=== PATIENT | female | born 1995 | race Caucasian/White ===

== ENCOUNTER 2016-08-28 17:12 | Emergency (ER) | payer OTHER, BC ==
[~2016-08-28] VITALS: Ht 160 cm; Wt 49.9 kg
[2016-08-28 17:13] VITALS: BP 123/84
[2016-08-28] MEDS ORDERED: DERMABOND TOPICAL SKIN ADHESIVE TOP ONE (18:00)
== END 2016-08-28 18:11 | disposition home or self-care (01) ==
LOC: M ED 18:08
DX: S61.012A Laceration without foreign body of left thumb without damage to nail, initial encounter (principal); W29.0XXA Contact with powered kitchen appliance, initial encounter; Y92.120 Kitchen in nursing home as the place of occurrence of the external cause; Y93.G1 Activity, food preparation and clean up; Y99.0 Civilian activity done for income or pay

== ENCOUNTER → 2016-11-07 | Outpatient (REF) | payer BC | LOC: M LAB REF 13:01 | PROVIDERS: ATTEND Physician Assistant | DX: J02.9 Acute pharyngitis, unspecified (principal) ==

== ENCOUNTER → 2017-02-06 | Outpatient (CLI) | payer BC ==
[2017-02-06 14:17] LABS: BASO % 0.4 % (0.0-1.0); EOS # 0.1 10^3/uL (0.0-0.50); EOS % 1.3 % (0.0-3.0); IMMATURE GRANULOCYTE % 0.2 % (0-0); LYMPH # 2.3 10^3/uL (1.5-6.5); LYMPH % 21.9 % (24.0-44.0); MEAN CORPUSCULAR HEMOGLOBIN 30.7 pg (27.0-33.0); MEAN CORPUSCULAR HGB CONC 34.8 g/dl (32.0-36.5); MEAN CORPUSCULAR VOLUME 88.3 fl (80.0-96.0); MONO % 9.3 % (0.0-5.0); NEUTROPHILS # 7.2 10^3/uL (1.8-7.7); NEUTROPHILS % 66.9 % (36.0-66.0); PLATELET COUNT, AUTOMATED 189 10^3/uL (150-450); RED CELL DISTRIBUTION WIDTH 12.1 % (11.5-14.5); WHITE BLOOD COUNT 10.7 10^3/uL (4.0-10.0)
[2017-02-06 15:39] LABS: HBsAg Prenatal NEGATIVE (NEGATIVE)
== END ==
LOC: M LAB 13:44
PROVIDERS: ATTEND Advanced Practice Midwife
DX: Z34.81 Encounter for supervision of other normal pregnancy, first trimester (principal); Z3A.01 Less than 8 weeks gestation of pregnancy

== ENCOUNTER 2017-03-10 03:31 | Emergency (ER) | payer BC ==
[~2017-03-10] VITALS: Ht 162.6 cm; Wt 49.5 kg
[2017-03-10] MEDS ORDERED: ACETAMINOPHEN TAB 650MG DOSE (2X325MG) PO ONE (04:00)
[2017-03-10 04:05] LABS: BASO % 0.4 % (0.0-1.0); EOS # 0.1 10^3/uL (0.0-0.50); EOS % 1.3 % (0.0-3.0); IMMATURE GRANULOCYTE % 0.4 % (0-0); LYMPH # 2.2 10^3/uL (1.5-6.5); LYMPH % 27.8 % (24.0-44.0); MEAN CORPUSCULAR HGB CONC 35.6 g/dl (32.0-36.5); MEAN CORPUSCULAR VOLUME 87.2 fl (80.0-96.0); MONO # 0.5 10^3/uL (0.0-0.8); MONO % 6.9 % (0.0-5.0); NEUTROPHILS % 63.2 % (36.0-66.0); PLATELET COUNT, AUTOMATED 178 10^3/uL (150-450); RED CELL DISTRIBUTION WIDTH 12.6 % (11.5-14.5); WHITE BLOOD COUNT 7.8 10^3/uL (4.0-10.0)
[2017-03-10 04:46] LABS: ANION GAP 9 MEQ/L (8-16); BLOOD UREA NITROGEN 11 MG/DL (7-18); CALCIUM LEVEL 8.2 MG/DL (8.5-10.1); CARBON DIOXIDE LEVEL 25 MEQ/L (21-32); CHLORIDE LEVEL 106 MEQ/L (98-107); CREATININE FOR GFR 0.51 MG/DL (0.55-1.02); GLOMERULAR FILTRATION RATE > 60.0 (>60); GLUCOSE, FASTING 80 MG/DL (70-105); POTASSIUM SERUM 3.8 MEQ/L (3.5-5.1); SODIUM LEVEL 140 MEQ/L (136-145)
[2017-03-10 06:04] VITALS: BP 105/66
--- NOTE | 2017-03-10 09:37 | REPUSA ---
CLINICAL HISTORY: Left upper extremity edema COMMENTS: Real-time ultrasound images of the deep venous system with Doppler evaluation. Normal compression, spontaneity and augmentation. Normal color Doppler. No intraluminal thrombus is seen. IMPRESSION: No evidence of deep venous thrombosis. Thank you for your kind referral of this patient.
== END 2017-03-10 06:10 | disposition home or self-care (01) ==
LOC: M ED 03:31
DX: O99.89 Other specified diseases and conditions complicating pregnancy, childbirth and the puerperium (principal); M79.602 Pain in left arm; Z3A.13 13 weeks gestation of pregnancy

== ENCOUNTER → 2017-04-17 | Outpatient (CLI) | payer BC | LOC: M RAD 15:51 | DX: Z36.89 Encounter for other specified antenatal screening (principal); Z3A.18 18 weeks gestation of pregnancy | CPT/HCPCS: 76817 ==

== ENCOUNTER → 2017-05-13 | Outpatient (CLI) | payer BC | LOC: M RAD 13:04 | DX: Z36.2 Encounter for other antenatal screening follow-up (principal); Z3A.21 21 weeks gestation of pregnancy | CPT/HCPCS: 76816 ==

== ENCOUNTER → 2017-06-02 | Outpatient (CLI) | payer BC ==
[2017-06-02 12:33] LABS: HEMATOCRIT 37.4 % (36.0-47.0); HEMOGLOBIN 12.8 g/dl (12.0-16.0); MEAN CORPUSCULAR HEMOGLOBIN 31.4 pg (27.0-33.0); MEAN CORPUSCULAR HGB CONC 34.2 g/dl (32.0-36.5); MEAN CORPUSCULAR VOLUME 91.7 fl (80.0-96.0); PLATELET COUNT, AUTOMATED 203 10^3/uL (150-450); RED BLOOD COUNT 4.08 10^6/uL (4.00-5.40); WHITE BLOOD COUNT 9.6 10^3/uL (4.0-10.0)
[2017-06-02 12:36] LABS: GLUCOSE CHALLENGE TEST 1 HOUR 137 MG/DL (LESS THAN 140)
== END ==
LOC: M LAB 11:00
DX: Z34.82 Encounter for supervision of other normal pregnancy, second trimester (principal)
CPT/HCPCS: 82950

== ENCOUNTER → 2017-07-15 | Outpatient (CLI) | payer BC, MEDICAID | LOC: M RAD 14:54 | DX: Z34.83 Encounter for supervision of other normal pregnancy, third trimester (principal) ==

== ENCOUNTER → 2017-08-13 | Outpatient (REF) | payer BC, MEDICAID | LOC: M LAB REF 17:08 | DX: Z34.83 Encounter for supervision of other normal pregnancy, third trimester (principal) | CPT/HCPCS: 87081 ==

== ENCOUNTER 2017-09-15 15:31 | Inpatient (IN) | payer BC, MEDICAID ==
[2017-09-15 17:05] LABS: HEMATOCRIT 40.6 % (36.0-47.0); HEMOGLOBIN 13.7 g/dl (12.0-15.5); MEAN CORPUSCULAR HEMOGLOBIN 30.3 pg (27.0-33.0); MEAN CORPUSCULAR HGB CONC 33.7 g/dl (32.0-36.5); MEAN CORPUSCULAR VOLUME 89.8 fl (80.0-96.0); PLATELET COUNT, AUTOMATED 224 10^3/uL (150-450); RED BLOOD COUNT 4.52 10^6/uL (4.00-5.40); RED CELL DISTRIBUTION WIDTH 12.8 % (11.5-14.5); WHITE BLOOD COUNT 15.4 10^3/uL (4.0-10.0)
[2017-09-15] MEDS ORDERED: FENTANYL 2MCG/ML ROPIVACAINE 0.2% IN 0.9% NACL 200ML IVBAG As Ordered (19:07)
[2017-09-15] MEDS ORDERED: ePHEDrine SULFATE 25 MG/5 ML(5MG/ML) SYRINGE As Ordered (19:56)
[2017-09-15] MEDS: LACTATED RINGER'S 1000 ML IV (20:29)
[2017-09-15] MEDS ORDERED: ONDANSETRON 4MG/2ML VIAL (J2405) IV (20:30)
[2017-09-15] MEDS ORDERED: ePHEDrine SULFATE 25 MG/5 ML(5MG/ML) SYRINGE IV (20:30)
[2017-09-15] MEDS ORDERED: EPIDURAL/PCA KEYS XX (20:30)
[2017-09-15] MEDS ORDERED: REFRIGERATOR IV KEYS XX (20:30)
[2017-09-15] MEDS ORDERED: diphenhydrAMINE INJ 50MG/ML VIAL (J1200) IV (20:30)
[2017-09-15] MEDS ORDERED: NALOXONE INJ 0.4 MG/1 ML VIAL (J2310) IV (20:30)
[2017-09-15] MEDS ORDERED: EPIDURAL COMMENT XX (20:30)
[2017-09-15] MEDS ORDERED: FENTANYL/ROPIVACAINE/NACL BAG 200 ML EPIDURAL (20:30)
[2017-09-15] MEDS ORDERED: LACTATED RINGER'S 1000 ML IV (20:30)
[2017-09-15] MEDS: LR 1,000 ML IV (20:45)
[2017-09-15] MEDS ORDERED: OXYTOCIN DRIP 30 UNITS in APPROPRIATE DILUENT 1 EA IV (21:30)
[2017-09-16] MEDS ORDERED: MEASLES,MUMPS,RUBELLA VACCINE INJ (MMR-II) (90707) SC (02:15)
[2017-09-16] MEDS ORDERED: DOCUSATE SODIUM 100 MG CAP PO (02:15)
[2017-09-16] MEDS ORDERED: PROMETHAZINE 25 MG TAB PO (02:15)
[2017-09-16] MEDS ORDERED: ONDANSETRON 4MG/2ML VIAL (J2405) IV (02:15)
[2017-09-16] MEDS ORDERED: RHOGAM 300 MCG (1500 IU) INJ (J2790) IM (02:15)
[2017-09-16] MEDS: BUTORPHANOL 2 MG/ML INJ (J0595) IV (04:29)
[2017-09-16] MEDS: PROMETHAZINE INJ 25 MG/ML VIAL (J2550) IV (04:29)
[2017-09-16] MEDS: LR 1,000 ML IV (04:29)
[2017-09-16] MEDS: OXYTOCIN DRIP 30 UNITS in APPROPRIATE DILUENT 1 EA IV (04:30)
[2017-09-16] MEDS: ACETAMINOPHEN 500 MG TAB PO (05:46)
[2017-09-16] MEDS: PRENATAL VITAMINS CHEWABLE TABLET PO (09:35)
[2017-09-16] MEDS: IBUPROFEN 800 MG TAB PO ×2 (09:36→18:08)
[2017-09-16] MEDS: DIBUCAINE 1% OINTMENT 30GM TOP (09:36)
[2017-09-17] MEDS: ACETAMINOPHEN 500 MG TAB PO (00:39)
[2017-09-17] MEDS: IBUPROFEN 800 MG TAB PO (05:27)
[2017-09-17] MEDS: PRENATAL VITAMINS CHEWABLE TABLET PO (09:12)
== END 2017-09-17 13:45 | disposition home or self-care (01) | DRG 560 ==
LOC: M LDI 15:31 → M OBS 09-16 03:56
PROVIDERS: Obstetrics & Gynecology
PROC: 10907ZC Drainage of Amniotic Fluid, Therapeutic from Products of Conception, Via Natural or Artificial Opening (ICD-10-PCS; 2017-09-15)
PROC: 10E0XZZ Delivery of Products of Conception, External Approach (ICD-10-PCS; principal; 2017-09-16)
PROC: 0HQ9XZZ Repair Perineum Skin, External Approach (ICD-10-PCS; 2017-09-16)
DX: O48.0 Post-term pregnancy (principal); O70.0 First degree perineal laceration during delivery; Z37.0 Single live birth; Z3A.40 40 weeks gestation of pregnancy

== ENCOUNTER → 2017-12-24 | Outpatient (REF) | payer BC | LOC: M SFHCLERA 20:29 | DX: R50.9 Fever, unspecified (principal) ==

== ENCOUNTER → 2020-03-27 | Outpatient (CLI) | payer BC ==
[~2020-03-27] MED LIST: IBUP-1114 PO; MAPA500T2 PO; PRENTAB9 PO
== END ==
LOC: M WHC 10:32
PROVIDERS: ATTEND Obstetrics & Gynecology
DX: Z34.92 Encounter for supervision of normal pregnancy, unspecified, second trimester (principal); Z3A.14 14 weeks gestation of pregnancy; Z53.9 Procedure and treatment not carried out, unspecified reason

== ENCOUNTER → 2020-04-11 | Outpatient (REF) | payer BC ==
[2020-04-11 18:01] LABS: HEMOGLOBIN 12.8 g/dl (12.0-15.5); MEAN CORPUSCULAR HEMOGLOBIN 30.5 pg (27.0-33.0); MEAN CORPUSCULAR HGB CONC 33.7 g/dl (32.0-36.5); MEAN CORPUSCULAR VOLUME 90.7 fl (80.0-96.0); PLATELET COUNT, AUTOMATED 212 10^3/uL (150-450); RED BLOOD COUNT 4.19 10^6/uL (4.00-5.40); WHITE BLOOD COUNT 9.4 10^3/uL (4.0-10.0)
[2020-04-11 18:56] LABS: HEPATITIS C VIRUS ABY INDEX < 0.0 INDEX (<0.8); HIV 1&2 SCREEN CENTAUR NEGATIVE (NEGATIVE)
[2020-04-11 19:34] LABS: CHLAMYDIA DNA AMPLIFICATION NEGATIVE (NEGATIVE); GC DNA AMPLIFICATION NEGATIVE (NEGATIVE)
== END ==
LOC: M PLALAB 15:22
PROVIDERS: ATTEND Obstetrics & Gynecology
DX: Z34.91 Encounter for supervision of normal pregnancy, unspecified, first trimester (principal)

== ENCOUNTER → 2020-04-24 | Outpatient (CLI) | payer BC ==
--- NOTE | 2020-04-24 13:15 | REP ---
INDICATION: ANATOMY COMPARISON: None. TECHNIQUE: Transabdominal obstetrical ultrasound with color Doppler evaluation. FINDINGS: Examination demonstrates a single live intrauterine in breech presentation. motion is identified by technologist. Placenta is noted posterior and grade 1 without evidence for placenta previa or abruption. Amniotic fluid volume is normal. Cervix measures 3.9 cm in length and appears closed.. Gestational age by LMP 18 weeks 0 days with ANGELES 09/25/2020. Gestational age by current measurements 17 weeks 3 days with ANGELES 09/29/2020. FHR equals 149 beats per minute. BPD: 3.8 cm 17 weeks 4 days HC: 13.8 cm 17 weeks 2 days AC: 11.9 cm 17 weeks 4 days FL: 2.5 cm 17 weeks 3 days HL: 2.4 cm 17 weeks 3 days HC/AC: 1.16 Estimated weight 198 grams (20thpercentile). Anatomical assessment demonstrates normal structures including cranium, choroid plexus, cavum, cerebellum/posterior fossa, facial features, lungs, diaphragm, stomach, cord insertion/three-vessel cord, kidneys/bladder, spine, and extremities. IMPRESSION: Single live intrauterine in breech presentation demonstrating appropriate interval growth. Limited evaluation of the heart/ventricular outflow tracts. Remainder of the anatomical assessment is complete and normal. <Electronically signed by Reji Mathews > 04/24/20 [id number]
== END ==
LOC: M WHC 07:56
PROVIDERS: ATTEND Obstetrics & Gynecology
DX: Z34.92 Encounter for supervision of normal pregnancy, unspecified, second trimester (principal); Z3A.17 17 weeks gestation of pregnancy

== ENCOUNTER → 2020-04-25 | Outpatient (CLI) | payer BC | LOC: M WHC 13:08 | PROVIDERS: ATTEND Obstetrics & Gynecology | DX: Z34.82 Encounter for supervision of other normal pregnancy, second trimester (principal); Z3A.18 18 weeks gestation of pregnancy ==

== ENCOUNTER → 2020-05-07 | Outpatient (CLI) | payer BC ==
--- NOTE | 2020-05-07 12:13 | REP ---
INDICATION: F/U ANATOMY. COMPARISON: Comparison study April 24, 2020.. TECHNIQUE: Transabdominal obstetric sonography. FINDINGS: Scanning through the gravid uterus demonstrates a viable single intrauterine gestation in cephalic lie. motion is observed and heart rate is recorded at 142 beats per minute. A posterior placenta is seen, grade 0, without evidence of placenta previa. Closed cervical length is measured at 3.5 cm transabdominally. No extrauterine abnormality is observed. Amniotic fluid is subjectively normal. The following anatomic structures are identified today and felt to be unremarkable: cranium, intracranial contents, nuchal fold face and profile, four-chamber heart with left and right ventricular outflow tract views, diaphragm, left-sided stomach, abdominal wall cord insertion, right and left kidney, urinary bladder, spine, three-vessel cord.. Biometry chart: BPD 4.4 cm, 19 weeks 2 days Head circumference 16.0 cm, 18 weeks 6 days Abdominal circumference 14.6 cm, 19 weeks 6 days Femur length 3.0 cm, 19 weeks 3 days Humeral length 3.0 cm, 19 weeks 5 days HC AC ratio normal 1.10 Cephalic index normal 0.76 Estimated weight 299 g, 0 lb 10 oz, 29th percentile for 19 weeks 6 days IMPRESSION: Viable single intrauterine gestation at 19 weeks 3 days by today's composite sonographic criteria. ANGELES by today's sonography September 28, 2020. No complication identified. Expected gestational age estimate based on prior sonography is 19 weeks 6 days. ANGELES by prior sonography September 25, 2020. In conjunction with the prior study, anatomic survey is felt to be complete. <Electronically signed by Sudhir Oviedo > 05/07/20 [id number]
== END ==
LOC: M WHC 09:50
PROVIDERS: ATTEND Obstetrics & Gynecology
DX: Z36.2 Encounter for other antenatal screening follow-up (principal); Z3A.19 19 weeks gestation of pregnancy

== ENCOUNTER → 2020-06-25 | Outpatient (REF) | payer BC ==
[2020-06-25 14:25] LABS: HEMATOCRIT 37.1 % (36.0-47.0); HEMOGLOBIN 12.6 g/dl (12.0-15.5); MEAN CORPUSCULAR HEMOGLOBIN 32.7 pg (27.0-33.0); MEAN CORPUSCULAR VOLUME 96.4 fl (80.0-96.0); PLATELET COUNT, AUTOMATED 211 10^3/uL (150-450); RED BLOOD COUNT 3.85 10^6/uL (4.00-5.40); WHITE BLOOD COUNT 9.8 10^3/uL (4.0-10.0)
== END ==
LOC: M PLALAB 09:49
PROVIDERS: ATTEND Obstetrics & Gynecology
DX: Z34.92 Encounter for supervision of normal pregnancy, unspecified, second trimester (principal); Z36.89 Encounter for other specified antenatal screening

== ENCOUNTER → 2020-06-27 | Outpatient (CLI) | payer BC, MEDICAID | LOC: M LAB 07:17 | PROVIDERS: ATTEND Obstetrics & Gynecology | DX: R73.09 Other abnormal glucose (principal) ==

== ENCOUNTER → 2020-08-29 | Outpatient (REF) | payer BC, MEDICAID | LOC: M SFHCWAGY 12:54 | PROVIDERS: ATTEND Advanced Practice Midwife | DX: Z36.89 Encounter for other specified antenatal screening (principal); Z3A.36 36 weeks gestation of pregnancy ==

== ENCOUNTER → 2020-09-19 | Outpatient (CLI) | payer BC, MEDICAID | LOC: M LABSMTC 09:33 | PROVIDERS: ATTEND Specialist | DX: Z11.52 Encounter for screening for COVID-19 (principal) ==

== ENCOUNTER → 2020-09-26 | Outpatient (CLI) | payer BC, MEDICAID | LOC: M LABSMTC 12:03 | PROVIDERS: ATTEND Specialist | DX: Z11.52 Encounter for screening for COVID-19 (principal) ==

== ENCOUNTER 2020-09-28 15:25 | Inpatient (IN) | payer BC, MEDICAID ==
[~2020-09-28] VITALS: Ht 160 cm; Wt 70.0 kg
[2020-09-28 15:38] VITALS: BP 119/67
[2020-09-28] MEDS ORDERED: LACTATED RINGER'S 1000 ML IV STA (15:38)
[2020-09-28] MEDS ORDERED: LR 1,000 ML IV SCH (15:40)
[2020-09-28] MEDS ORDERED: LIDOCAINE 1% MDV 20ML VIAL INFIL PRN (15:40)
[2020-09-28] MEDS ORDERED: OXYTOCIN DRIP 30 UNITS in IV 1 EA IV PRN (15:40)
--- NOTE | 2020-09-28 15:55 | HPEPDOC ---
Obstetrical History & Physical General Date of Admission Sep 28, 2020 at 15:38 History of Present Illness Chief Complaint: Contractions, term Age: 25 : 2 Term: 1 Pre-term: 0 Abortions: 0 Livin Care Care: Good Care Dating Final EDC: Sep 25, 2020 Final EDC by: LMP EGA at Admission: 40 (+3) Antepartum Course Pre- weight (lbs.): 116 Admission Weight (lbs.): 145 Past Medical History Past Obstetrical History : Past Obstetrical History: Primgravida (2017) Type of Delivery: Spontaneous Vaginal Del. 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 Past Medical History Surgical History: Denies/None Family History Significant Family History: No pertinent family hx Social History Marital Status: Single Family situation: Spouse/partner home Psychosocial History: No pertinent psych hx * Smoker: non-smoker Alcohol: Denies Drugs: denies Abuse Violence Screening Have you been hit/kicked/slapp: No Have you been sexually assault: No Imunizations Tdap status: declined Influenza Status: current Allergies Coded Allergies: No Known Allergies (Unverified , 09/15/17) Medications Scheduled No.137/Iron/Folic Acd ( Vitamin Tablet) 1 Tab Tab, 1 TAB PO DAILY Scheduled PRN Acetaminophen (Mapap) 500 Mg Tab, 1,000 MG PO Q6HP PRN for PAIN SCALE 1-5 Ibuprofen (Ibuprofen) 400 Mg Tab, 800 MG PO Q8HP PRN for PAIN SCALE 6-10 Physical Examination Physical Examination GENERAL: Alert and oriented times three. BREAST: . ABDOMEN: Gravid and non-tender to touch. FETUS: Is vertex (VTX) by sterile vaginal examination (SVE), fetus is vertex (VTX) by Parish. EFW 7# HEART RATE: Regular rate and rhythm. LUNGS: Clear to auscultation (CTA). EXTREMITIES: No edema. No clonus. Deep tendon reflexes (DTRs) + 2. Pertinent Laboratoy Data Blood Type: O+ RBC Antibody Screen: Negative HIV: Negative Hepatitis B: Negative Hepatitis C: Negative Rapid Plasma Reagin: Nonreactive Rubella: Immune Chlamydia/Gonorrhea: Negative Group B Streptococcus: Negative Glucose Tolerance Test: 132 (76/89/90/93) Anatomy Ultrasound Ultrasound Date: Apr 24, 2020 Placenta Location: Posterior Normal Anatomy: Yes Placenta Previa: No Estimated Weight (grams): 198 (20%) Other Ultrasounds 02/28/2020 dating cw LMP 05/07/2020 f/u anatomy cephalic, normal f/u anatomy, 299gm, 29% 09/05 cephalic Steroid Therapy Steroid Therapy: No Vaginal Examination Dilation: 6 cm Effacement: 80% Station: -1 Cervical Consistency: Soft Cervical Position: Posterior Presentation: Cephalic presentation Assessment Heart Rate (FHR): 125 Variability: Moderate Accelerations: Positive Decelerations: None Tocometer Contractions: Yes Frequency: regular, every 2-5 min. Duration: greater than 60 seconds Strength: palpated as strong Assessment/Plan Assessment Shahida is a 25-year-old (G)2 para (P)1-0-0-1 at 40+3 weeks by 10-week ultrasound. Presents to Labor and Delivery (L&D) with reports of UC on and off since last night, stronger and more regular in the last hour. Denies LOF, bleeding. Reports good activity. Plan Admit and orient. Guide Visitor and consent. Diet: clear liquids. Group B Streptococcus (GBS) negative. Labs and intravenous (IV) per unit protocol. Counseled on Pitocin and induction of labor (IOL). Lactated Ringers (LR): Bolus 500 mL, then at 125 mL/hr. Plans epidural Anticipate normal spontaneous delivery () C-S as appropriate. Josie Isaac CNM Sep 28, 2020 15:44
[2020-09-28 16:20] LABS: MEAN CORPUSCULAR HEMOGLOBIN 28.4 pg (27.0-33.0); MEAN CORPUSCULAR HGB CONC 32.4 g/dl (32.0-36.5); MEAN CORPUSCULAR VOLUME 87.5 fl (80.0-96.0); PLATELET COUNT, AUTOMATED 233 10^3/uL (150-450); RED BLOOD COUNT 4.23 10^6/uL (4.00-5.40); WHITE BLOOD COUNT 13.4 10^3/uL (4.0-10.0)
[2020-09-28] MEDS ORDERED: LIDOCAINE 1% MDV 20ML VIAL INFIL ONE (17:00)
[2020-09-28] MEDS ORDERED: METHYLERGONOVINE MALEATE 0.2 MG TAB PO PRN (17:00)
[2020-09-28] MEDS ORDERED: MOM 30ML SUSPENSION UDC PO PRN (17:00)
[2020-09-28] MEDS ORDERED: ACETAMINOPHEN TAB 650MG DOSE (2X325MG) PO PRN (17:00)
[2020-09-28] MEDS ORDERED: RHOGAM 300 MCG (1500 IU) INJ (J2790) IM SCH (17:00)
[2020-09-28] MEDS ORDERED: MEASLES,MUMPS,RUBELLA VACCINE INJ (MMR-II) (90707) SC SCH (17:00)
[2020-09-28] MEDS ORDERED: ANUSOL HC CREAM 30GM TOP PRN (17:00)
[2020-09-28] MEDS ORDERED: OXYTOCIN DRIP 30 UNITS in IV 1 EA IV SCH (17:00)
[2020-09-28] MEDS ORDERED: DIBUCAINE 1% OINTMENT 30GM TOP PRN (17:00)
[2020-09-28] MEDS ORDERED: IBUPROFEN 600MG TAB PO PRN (17:00)
[2020-09-28] MEDS ORDERED: DOCUSATE SODIUM 100MG CAPSULE PO PRN (17:00)
[2020-09-28] MEDS ORDERED: IBUPROFEN 800 MG TAB PO PRN (17:00)
--- NOTE | 2020-09-28 17:11 | DNPDOC ---
[facility] Delivery Note Delivery Note DATE OF DELIVERY: 09/28/2020 PREDELIVERY DIAGNOSIS: 40=3/7 weeks' gestation and labor. POST DELIVERY DIAGNOSIS: Delivered. PROCEDURE: Spontaneous vaginal delivery. PROVIDER: Josie Isaac CNM ANESTHESIA: None ESTIMATED BLOOD LOSS: 200 mL. FINDINGS: 7 pound 12 ounce. 3520gm male infant, Score 8/9, no nuchal cord. DELIVERY SUMMARY: Patient is a 25-year-old 2 now para 2-0-0-2 who was admitted to labor and delivery for active labor. She progressed rapidly under her own power. Coped physiologically with her labor. SROM/fully dilated for thi n meconium stained fluid 1609. Viable male delivered MARIA D, restituted to LOP without difficulty @ 1630. Spontaneous respirations, transitioned on maternal abdomen. Cord doubly clamped and cut by FOB under my direction once pulsations ceased. Apgars 8/9. Placenta carmen, intact with 3v cord @ 1634. Fundus firmed with massage and IV bolus of premixed pitocin infusion. 1st degree perineal laceration infiltrated with lidocaine and reapproximated with 3-0 vicryl rapide. Sponge, sharp and instrument count correct. Parents are naming their son Martín Quiroz. Josie Isaac CNM Sep 28, 2020 17:10
[2020-09-28 17:39] VITALS: BP 121/65
[2020-09-28 17:54] VITALS: BP 116/63
[2020-09-28 18:09] VITALS: BP 106/62
[2020-09-28 18:56] VITALS: BP 118/61
[2020-09-29] MEDS: ACETAMINOPHEN 500 MG TAB PO PRN ×2 (04:23→17:52)
[2020-09-29 06:30] VITALS: BP 93/55
[2020-09-29] MEDS: PRENATAL VITAMINS CHEWABLE TABLET PO SCH (09:00)
--- NOTE | 2020-09-29 10:45 | IPNPDOC ---
Progress Note Date of Service: Sep 29, 2020 Day#: 1 Progress Note SUBJECT: Doing well without complaints. Ambulating, voiding and pain is well- controlled. Reports minimal lochia. OBJECTIVE: VITAL SIGNS: Within normal limits, afebrile. Alert and oriented times three. Abdomen: Fundus firm at U-2. Soft, NTTP. Ext: neg calf tenderness. ASSESSMENT: day #1 status post . Recovering in stable condition. PLAN: 1. Continue routine care 2. Discharge plans for tomorrow VS, I&O, 24H, Fishbone Vital Signs/I&O Vital Signs Date Time Temp Pulse Resp B/P (MAP) Pulse Ox O2 Delivery O2 Flow Rate FiO2 09/29/20 06:30 97.9 71 18 93/55 (68) 97 I&O- Last 24 Hours up to 6 AM 09/29/20 06:00 Intake Total 1200 ml Output Total 700 ml Balance 500 ml Laboratory Data 24H LABS Laboratory Tests 2 09/28/20 15:47: Serology Scanned Report Hepatitis B Testing 09/28/20 16:04: Nucleated Red Blood Cells % (auto) 0.0 09/28/20 16:05: CBC/BMP Laboratory Tests 09/28/20 16:04 INGRID SAINZ MD. Sep 29, 2020 10:45
[2020-09-29 18:00] VITALS: BP 117/56
[2020-09-30] MEDS: ACETAMINOPHEN 500 MG TAB PO PRN (00:52)
[2020-09-30 06:00] VITALS: BP 107/70
[2020-09-30] MEDS: PRENATAL VITAMINS CHEWABLE TABLET PO SCH (08:12)
== END 2020-09-30 15:25 | disposition home or self-care (01) | DRG 560 ==
LOC: M LDO 15:25 → M LDI 15:38 → M OBS 18:47
PROVIDERS: ADMIT Advanced Practice Midwife; ATTEND Advanced Practice Midwife
PROC: 10E0XZZ Delivery of Products of Conception, External Approach (ICD-10-PCS; principal; 2020-09-28)
PROC: 0HQ9XZZ Repair Perineum Skin, External Approach (ICD-10-PCS; 2020-09-28)
DX: O48.0 Post-term pregnancy (principal); Z3A.40 40 weeks gestation of pregnancy; Z37.0 Single live birth; O77.0 Labor and delivery complicated by meconium in amniotic fluid; O70.0 First degree perineal laceration during delivery

== ENCOUNTER → 2021-05-08 | Outpatient (REF) | payer BC, MEDICAID | LOC: M SFHCWAGY 10:03 | PROVIDERS: ATTEND Advanced Practice Midwife | DX: Z12.4 Encounter for screening for malignant neoplasm of cervix (principal); Z01.419 Encounter for gynecological examination (general) (routine) without abnormal findings ==

== ENCOUNTER → 2022-01-01 | Outpatient (REF) | payer MEDICAID, BC | LOC: M SFHCWAGY 17:23 | PROVIDERS: ATTEND Obstetrics & Gynecology | DX: Z01.42 Encounter for cervical smear to confirm findings of recent normal smear following initial abnormal smear (principal) ==

== ENCOUNTER → 2022-02-04 | Outpatient (REF) | payer MEDICAID | LOC: M SFHCWAGY 17:32 | PROVIDERS: ATTEND Obstetrics & Gynecology | DX: R87.613 High grade squamous intraepithelial lesion on cytologic smear of cervix (HGSIL) (principal) ==

== ENCOUNTER → 2022-04-14 | Outpatient (CLI) | payer MEDICAID ==
[~2022-04-14] MED LIST changes: +NORE1PAT TOP
== END ==
LOC: M LABSMTC 10:50
PROVIDERS: ATTEND Anesthesiology
DX: Z01.812 Encounter for preprocedural laboratory examination (principal)

== ENCOUNTER 2022-04-16 07:13 | Day surgery (SDC) | payer MEDICAID ==
[~2022-04-16] VITALS: Ht 160 cm; Wt 49.9 kg
[~2022-04-16 07:13] MED LIST changes: +IODINE STRONG SOLN 15ML BTL As Ordered ONE; +LIDOCAINE W/EPINEPHRINE 1% 20ML VIAL As Ordered ONE; +SILVER NITRATE APPLICATOR (1 = QTY 10) As Ordered ONE
[2022-04-16] MEDS ORDERED: LR 1,000 ML IV SCH ×2 (07:35→09:10)
[2022-04-16 08:01] LABS: HEMATOCRIT 40.3 % (36.0-47.0); HEMOGLOBIN 13.2 g/dl (12.0-15.5); MEAN CORPUSCULAR HEMOGLOBIN 30.1 pg (27.0-33.0); MEAN CORPUSCULAR HGB CONC 32.8 g/dl (32.0-36.5); PLATELET COUNT, AUTOMATED 212 10^3/uL (150-450); RED BLOOD COUNT 4.38 10^6/uL (4.00-5.40); WHITE BLOOD COUNT 6.2 10^3/uL (4.0-10.0)
[2022-04-16] MEDS ORDERED: LIDOCAINE W/EPINEPHRINE 1% 20ML VIAL As Ordered ONE (08:25)
[2022-04-16] MEDS ORDERED: MIDAZOLAM INJ 2MG/2ML VIAL As Ordered ONE (08:32)
[2022-04-16] MEDS ORDERED: fentaNYL 100 MCG/2 ML INJECTION As Ordered ONE (08:32)
[2022-04-16] MEDS ORDERED: LIDOCAINE 2% 100MG/5ML SDV (FOR ANES.) As Ordered ONE (08:32)
[2022-04-16] MEDS ORDERED: ONDANSETRON 4MG 2ML VIAL As Ordered ONE (08:32)
[2022-04-16] MEDS ORDERED: KETOROLAC 60MG 2ML VIAL As Ordered ONE (08:32)
[2022-04-16] MEDS ORDERED: propofoL 200 MG/20 ML VIAL As Ordered ONE (08:32)
[2022-04-16] MEDS ORDERED: IBUP1TAB7 PO (08:56)
[2022-04-16] MEDS ORDERED: METOCLOPRAMIDE INJ 10MG/2ML VIAL IV PRN (09:10)
[2022-04-16] MEDS ORDERED: oxyCODONE 5MG TAB PO PRN (09:10)
[2022-04-16] MEDS ORDERED: ONDANSETRON 4MG 2ML VIAL IV PRN (09:10)
[2022-04-16 10:55] VITALS: BP 109/65
== END 2022-04-16 11:00 | disposition home or self-care (01) ==
LOC: M SDC 07:13
PROVIDERS: ATTEND Obstetrics & Gynecology
DX: D06.9 Carcinoma in situ of cervix, unspecified (principal); Z79.4 Long term (current) use of insulin
CPT/HCPCS: 36415; 57522; 81025; 85027; 86850; 86900; 86901; 88307; J1100; J2405

== ENCOUNTER 2022-10-03 12:25 | Day surgery (SDC) | payer MEDICAID ==
[~2022-10-03] VITALS: Ht 160 cm; Wt 46.7 kg
[~2022-10-03 12:25] MED LIST changes: +IBUP1TAB7 PO; -IODINE STRONG SOLN 15ML BTL As Ordered ONE; +KETOROLAC 60MG 2ML VIAL As Ordered ONE; +LIDOCAINE 2% 100MG/5ML SDV (FOR ANES.) As Ordered ONE; -LIDOCAINE W/EPINEPHRINE 1% 20ML VIAL As Ordered ONE; +LR 1,000 ML IV SCH; +MIDAZOLAM INJ 2MG/2ML VIAL As Ordered ONE; +ONDANSETRON 4MG 2ML VIAL As Ordered ONE; +ROCURONIUM BROMIDE 50MG/5ML VIAL As Ordered ONE; -SILVER NITRATE APPLICATOR (1 = QTY 10) As Ordered ONE; +fentaNYL 100 MCG/2 ML INJECTION As Ordered ONE; +propofoL 200 MG/20 ML VIAL As Ordered ONE
[2022-10-03 13:22] LABS: HEMATOCRIT 47.5 % (36.0-47.0); HEMOGLOBIN 16.1 g/dl (12.0-15.5); MEAN CORPUSCULAR HEMOGLOBIN 30.8 pg (27.0-33.0); MEAN CORPUSCULAR HGB CONC 33.9 g/dl (32.0-36.5); PLATELET COUNT, AUTOMATED 223 10^3/uL (150-450); RED BLOOD COUNT 5.22 10^6/uL (4.00-5.40); WHITE BLOOD COUNT 7.2 10^3/uL (4.0-10.0)
[2022-10-03 14:02] LABS: HCG, SERUM QUALITATIVE NEGATIVE (NEGATIVE)
[2022-10-03] MEDS ORDERED: SUGAMMADEX SODIUM 500 MG/5 ML VIAL (BRIDION) As Ordered ONE (14:08)
[2022-10-03] MEDS ORDERED: KETOROLAC 60MG 2ML VIAL As Ordered ONE (18:02)
[2022-10-03] MEDS ORDERED: HYDROmorphone HCL 2MG/ML 1ML VIAL As Ordered ONE (18:42)
[2022-10-03] MEDS ORDERED: ACETAMINOPHEN 1000MG 100ML IV BAG As Ordered ONE (18:42)
[2022-10-03] MEDS ORDERED: ePHEDrine SULFATE 25 MG/5 ML(5MG/ML) SYRINGE As Ordered ONE (19:04)
[2022-10-03] MEDS ORDERED: PERC5TAB12 PO (19:26)
[2022-10-03] MEDS ORDERED: IBUP1TAB7 PO (19:28)
[2022-10-03] MEDS ORDERED: COLA100C5 PO (19:28)
[2022-10-03] MEDS ORDERED: ONDANSETRON 4MG 2ML VIAL IV PRN (19:55)
[2022-10-03] MEDS ORDERED: fentaNYL 100 MCG/2 ML INJECTION IV PRN (19:55)
[2022-10-03] MEDS ORDERED: oxyCODONE 5MG TAB PO PRN (19:55)
[2022-10-03] MEDS ORDERED: HYDROMORPHONE HCL 0.5 MG/ 0.5 ML SYRINGE IV PRN (19:55)
[2022-10-03 21:17] VITALS: BP 118/60; TEMP 98.2; O2SAT 100
== END 2022-10-03 21:55 | disposition home or self-care (01) ==
LOC: M SDC 12:25
PROVIDERS: ATTEND Obstetrics & Gynecology
DX: Z30.2 Encounter for sterilization (principal); Z79.3 Long term (current) use of hormonal contraceptives
CPT/HCPCS: 36415; 58661; 81025; 84703; 85027; 86850; 86900; 86901; 88302; J0131; J0665; J1100; J1170; J1885; J2250; J2405; J3010

== ENCOUNTER → 2023-11-06 | Outpatient (REF) | payer MEDICAID, OTHER ==
[~2023-11-06] MED LIST changes: +COLA100C5 PO; -KETOROLAC 60MG 2ML VIAL As Ordered ONE; -LIDOCAINE 2% 100MG/5ML SDV (FOR ANES.) As Ordered ONE; -LR 1,000 ML IV SCH; -MIDAZOLAM INJ 2MG/2ML VIAL As Ordered ONE; -ONDANSETRON 4MG 2ML VIAL As Ordered ONE; +PERC5TAB12 PO; -ROCURONIUM BROMIDE 50MG/5ML VIAL As Ordered ONE; -fentaNYL 100 MCG/2 ML INJECTION As Ordered ONE; -propofoL 200 MG/20 ML VIAL As Ordered ONE
== END ==
LOC: M SFHCWAGY 14:59
PROVIDERS: ATTEND Obstetrics & Gynecology
DX: Z12.4 Encounter for screening for malignant neoplasm of cervix (principal)

== ENCOUNTER 2024-05-30 09:57 | Emergency (ER) | payer OTHER ==
[~2024-05-30] VITALS: Ht 162.6 cm; Wt 52.0 kg
[2024-05-30 12:05] LABS: BASO % 0.5 % (0.0-1.0); EOS % 0.6 % (0.0-3.0); HEMATOCRIT 37.7 % (36.0-47.0); HEMOGLOBIN 12.7 g/dl (12.0-15.5); LYMPH # 1.6 10^3/uL (1.5-5.0); LYMPH % 25.3 % (24.0-44.0); MEAN CORPUSCULAR HEMOGLOBIN 30.8 pg (27.0-33.0); MEAN CORPUSCULAR HGB CONC 33.7 g/dl (32.0-36.5); MEAN CORPUSCULAR VOLUME 91.3 fl (80.0-96.0); MONO # 0.5 10^3/uL (0.0-0.8); MONO % 7.9 % (2.0-8.0); NEUTROPHILS # 4.3 10^3/uL (1.5-8.5); NEUTROPHILS % 65.5 % (36.0-66.0); PLATELET COUNT, AUTOMATED 213 10^3/uL (150-450); RED BLOOD COUNT 4.13 10^6/uL (4.00-5.40); WHITE BLOOD COUNT 6.5 10^3/uL (4.0-10.0)
[2024-05-30 12:11] LABS: ERYTHROCYTE SEDIMENTATION RATE 19 mm/hr (0-20)
[2024-05-30 12:34] LABS: MONO SCRN NEGATIVE (NEGATIVE)
[2024-05-30 12:35] LABS: C REACTIVE PROTEIN QUANTITATIV 1.04 MG/DL (<1.0)
[2024-05-30 12:36] LABS: ALBUMIN 3.2 G/DL (3.2-5.2); ALKALINE PHOSPHATASE 74 U/L (35-104); ALT/SGPT 16 U/L (7.0-40); AST/SGOT 18 U/L (<34); BILIRUBIN,DIRECT 0.2 MG/DL (<0.4); BILIRUBIN,TOTAL 0.7 MG/DL (0.3-1.2); BLOOD UREA NITROGEN 16 MG/DL (9-23); CALCIUM LEVEL 8.9 MG/DL (8.5-10.1); CARBON DIOXIDE LEVEL 27 MMOL/L (20-31); CHLORIDE LEVEL 108 MMOL/L (98-107); CREATININE FOR GFR 0.58 MG/DL (0.55-1.30); GLOMERULAR FILTRATION RATE > 60.0 (>60); GLUCOSE, FASTING 101 MG/DL (60-100); POTASSIUM SERUM 3.8 MMOL/L (3.5-5.1); SODIUM LEVEL 142 MMOL/L (136-145)
[2024-05-30 16:40] VITALS: BP 107/61
[2024-05-30 16:42] VITALS: O2SAT 100
[2024-05-30 16:58] VITALS: TEMP 98.6
== END 2024-05-30 17:05 | disposition home or self-care (01) ==
LOC: M ED 09:57
DX: R59.0 Localized enlarged lymph nodes (principal); Z79.1 Long term (current) use of non-steroidal anti-inflammatories (NSAID); Z79.3 Long term (current) use of hormonal contraceptives